=== PATIENT | female | born 1995 ===

== ENCOUNTER → 2024-05-23 | Outpatient (CLI) | payer OTHER | LOC: LAB 16:54 → LAB SHORT 16:54 | PROVIDERS: Advanced Practice Midwife | DX: Z01.419 Encounter for gynecological examination (general) (routine) without abnormal findings (principal) | CPT/HCPCS: G0123 ==

== ENCOUNTER → 2024-11-07 | Outpatient (CLI) | payer OTHER | END | disposition home or self-care (01) | LOC: LAB 17:24 → LAB SHORT 17:24 | DX: Z34.93 Encounter for supervision of normal pregnancy, unspecified, third trimester (principal); Z3A.00 Weeks of gestation of pregnancy not specified | CPT/HCPCS: 87081; 87147 ==

== ENCOUNTER 2024-12-01 23:38 | Inpatient (IN) | payer OTHER ==
[~2024-12-01] VITALS: Ht 160 cm; Wt 103.1 kg
[2024-12-01 23:56] VITALS: BP 163/109
[2024-12-02] VITALS (40 sets, daily range): BP systolic 113–203; BP diastolic 58–107
[2024-12-02] MEDS ORDERED: FentaNYL Citrate 50 MCG/ML 2 ML Injection IV PRN (00:20)
[2024-12-02] MEDS ORDERED: FentaNYL 2mcg/ml-Bup 0.1% Epd 250 ML EPI PRN (00:25)
[2024-12-02] MEDS ORDERED: Methylergonovine Maleate 0.2MG / ML 1ML Amp IM PRN ×2 (00:25→15:45)
[2024-12-02] MEDS ORDERED: Tranexamic Acid 100 ML IV PRN (00:25)
[2024-12-02] MEDS ORDERED: Penicillin G Potassium 5,000,000 UNITS in NS 250 ML IV ONE (00:25)
[2024-12-02] MEDS ORDERED: Ondansetron HCl 2 MG / ML 2ML Vial IV PRN (00:25)
[2024-12-02] MEDS ORDERED: OXYTOCIN/RINGER'S LACTATE 500 ML IV PRN (00:25)
[2024-12-02] MEDS ORDERED: Carboprost Tromethamine 250 MCG/ML 1ML Amp IM PRN ×2 (00:25→15:45)
[2024-12-02] MEDS ORDERED: ePHEDrine Sulfate 50 MG/ML 1ML Injection XX PRN (00:25)
[2024-12-02] MEDS ORDERED: Oxytocin 10 Unit / ML Vial IM PRN (00:25)
[2024-12-02 01:10] LABS: BASOPHILS ABSOLUTE AUTO 0.03 K/mm3 (0.00-0.23); BASOPHILS PERCENT AUTO 0 % (0-2); EOSINOPHILS ABSOLUTE AUTO 0.07 K/mm3 (0.00-0.68); EOSINOPHILS PERCENT AUTO 1 % (0-6); Hematocrit 36.6 % (33.0-51.0); Hemoglobin 12.3 g/dL (11.5-16.0); IMMATURE GRAN ABSOLUTE AUTO 0.04 K/mm3 (0.00-0.10); IMMATURE GRAN PERCENT AUTO 0 % (0-1); LYMPHOCYTES ABSOLUTE AUTO 2.48 K/mm3 (0.84-5.20); LYMPHOCYTES PERCENT AUTO 27 % (21-46); MONOCYTES ABSOLUTE AUTO 0.71 K/mm3 (0.16-1.47); MONOCYTES PERCENT AUTO 8 % (4-13); Mean Corpuscular HGB Conc 33.6 g/dL (31.5-36.5); Mean Corpuscular Volume 83 fL (80-100); NEUTROPHILS ABSOLUTE AUTO 5.89 K/mm3 (1.96-9.15); NEUTROPHILS PERCENT AUTO 64 % (41-73); NRBC ABSOLUTE 0.00 K/mm3 (0.00-0.02); NRBC Auto 0.0 /100 WBC (0.0-0.2); Platelet Count 201 K/mm3 (150-400); RDW Coefficient Variation 13.5 % (11.7-14.2); RDW Standard Deviation 40.1 fL (35.1-46.3)
[2024-12-02] MEDS ORDERED: Penicillin G Potassium 2,500,000 UNITS in Dextrose 5% 100 ML IV SCH (05:00)
[2024-12-02] MEDS ORDERED: DiphenhydrAMINE HCl 50 MG/ML 1ML Vial IV ONE (08:05)
[2024-12-02] MEDS ORDERED: DiphenhydrAMINE HCl 50 MG/ML 1ML Vial ONE (08:06)
[2024-12-02] MEDS ORDERED: OXYTOCIN/RINGER'S LACTATE 500 ML IV SCH ×2 (11:10→15:40)
[2024-12-02] MEDS ORDERED: Tranexamic Acid 100 ML IV ONE (15:08)
[2024-12-02] MEDS ORDERED: Oxytocin 10 Unit / ML Vial IM ONE (15:40)
[2024-12-02] MEDS ORDERED: Benzocaine Topical Anesthetic Spray 60GM TOP PRN (15:45)
[2024-12-02] MEDS ORDERED: Ketorolac Tromethamine 30mg Vial IV PRN (15:45)
[2024-12-02] MEDS ORDERED: Witch Hazel/Glycerin PADS TOP PRN (15:50)
[2024-12-02] MEDS ORDERED: FLU VACC TS2025-26(6MOS UP)/PF 45 MCG/0.5 ML SYRINGE IM SCH (15:50)
[2024-12-02] MEDS ORDERED: Rho(D) Immune Globulin 300 MCG / SYR IM ONE (15:50)
[2024-12-02] MEDS ORDERED: Labetalol HCL 5 MG/ML 4ML Injection (Single Dose) ONE (16:28)
[2024-12-02] MEDS ORDERED: Magnesium Sulf 2 GM/Water 50ML 50 ML IV SCH (16:50)
[2024-12-02] MEDS ORDERED: Labetalol HCL 5 MG/ML 4ML Injection (Single Dose) IV ONE (16:50)
[2024-12-02] MEDS ORDERED: Magnesium Sul 4 GM/Water100 ML 100 ML IV ONE (16:50)
[2024-12-02] MEDS ORDERED: Labetalol HCL 5 MG/ML 4ML Injection (Single Dose) IV PRN ×2 (16:50)
[2024-12-02 17:45] LABS: BASOPHILS ABSOLUTE AUTO 0.01 K/mm3 (0.00-0.23); BASOPHILS PERCENT AUTO 0 % (0-2); EOSINOPHILS ABSOLUTE AUTO 0.00 K/mm3 (0.00-0.68); EOSINOPHILS PERCENT AUTO 0 % (0-6); Hematocrit 31.6 % (33.0-51.0); Hemoglobin 10.5 g/dL (11.5-16.0); IMMATURE GRAN ABSOLUTE AUTO 0.09 K/mm3 (0.00-0.10); IMMATURE GRAN PERCENT AUTO 1 % (0-1); LYMPHOCYTES ABSOLUTE AUTO 1.66 K/mm3 (0.84-5.20); LYMPHOCYTES PERCENT AUTO 11 % (21-46); MONOCYTES ABSOLUTE AUTO 0.79 K/mm3 (0.16-1.47); MONOCYTES PERCENT AUTO 5 % (4-13); Mean Corpuscular HGB Conc 33.2 g/dL (31.5-36.5); Mean Corpuscular Volume 82 fL (80-100); NEUTROPHILS ABSOLUTE AUTO 12.02 K/mm3 (1.96-9.15); NEUTROPHILS PERCENT AUTO 83 % (41-73); NRBC ABSOLUTE 0.00 K/mm3 (0.00-0.02); NRBC Auto 0.0 /100 WBC (0.0-0.2); Platelet Count 172 K/mm3 (150-400); RDW Coefficient Variation 13.7 % (11.7-14.2); RDW Standard Deviation 40.4 fL (35.1-46.3)
[2024-12-02 18:13] LABS: Alanine Aminotransfer (ALT/SGP 26.0 U/L (12-78); Albumin, Blood 2.3 g/dL (3.4-5.0); Albumin/Globulin Ratio 0.6 (0.8-1.8); Anion Gap 13.0 mmol/L (3-11); Aspartate Aminotrans (AST/SGOT 32.0 U/L (12-37); Bilirubin, Total 0.2 mg/dL (0.1-1.0); Blood Urea Nitrogen 14.0 mg/dL (8-24); CO2, Blood 22.0 mmol/L (21-32); Calcium, Blood 8.2 mg/dL (8.5-10.1); Chloride, Blood 97.0 mmol/L (98-108); Creatinine, Blood 0.8 mg/dL (0.40-1.00); Globulin, Blood 3.8 g/dL (2.2-4.0); Glucose, Blood 96.0 mg/dL (70-99); Lactate Dehydrogenase (Ld),Bld 247.0 U/L (100-240); Potassium, Blood 3.6 mmol/L (3.5-5.5); Sodium, Blood 128.0 mmol/L (136-145); Total Protein, Blood 6.1 g/dL (6.4-8.2)
[2024-12-02 18:30] LABS: Fibrinogen 452.0 mg/dL (170-430); Prothrombin Time Results 9.8 Sec (9.7-11.5)
--- NOTE | 2024-12-02 20:04 | NUR ---
DR LIVINGSTON IS UPDATED WITH TRENDING BP'S. ORDER IS RECEIVED FOR PO LABETALOL 100MG BID IF BP IS >150/90 NOT RELATED TO PAIN.
[2024-12-02] MEDS ORDERED: Rho(D) Immune Globulin 300 MCG / SYR IV ONE (21:15)
[2024-12-03] VITALS (8 sets, daily range): BP systolic 117–155; BP diastolic 66–108
[2024-12-03 05:48] LABS: BASOPHILS ABSOLUTE AUTO 0.02 K/mm3 (0.00-0.23); BASOPHILS PERCENT AUTO 0 % (0-2); EOSINOPHILS ABSOLUTE AUTO 0.02 K/mm3 (0.00-0.68); EOSINOPHILS PERCENT AUTO 0 % (0-6); Hematocrit 32.2 % (33.0-51.0); Hemoglobin 10.6 g/dL (11.5-16.0); IMMATURE GRAN ABSOLUTE AUTO 0.06 K/mm3 (0.00-0.10); IMMATURE GRAN PERCENT AUTO 1 % (0-1); LYMPHOCYTES ABSOLUTE AUTO 2.08 K/mm3 (0.84-5.20); LYMPHOCYTES PERCENT AUTO 16 % (21-46); MONOCYTES ABSOLUTE AUTO 0.74 K/mm3 (0.16-1.47); MONOCYTES PERCENT AUTO 6 % (4-13); Mean Corpuscular HGB Conc 32.9 g/dL (31.5-36.5); Mean Corpuscular Volume 84 fL (80-100); NEUTROPHILS ABSOLUTE AUTO 10.04 K/mm3 (1.96-9.15); NEUTROPHILS PERCENT AUTO 77 % (41-73); NRBC ABSOLUTE 0.00 K/mm3 (0.00-0.02); NRBC Auto 0.0 /100 WBC (0.0-0.2); Platelet Count 161 K/mm3 (150-400); RDW Coefficient Variation 13.9 % (11.7-14.2); RDW Standard Deviation 42.2 fL (35.1-46.3)
--- NOTE | 2024-12-03 08:40 | NUR ---
BP @0814 WAS NOT ACCURATE D/T PT GETTING UP AND WALKING AROUND BEFORE HAND. REPEAT BP AFTER RESTING AND BREAST FEEDING 135/74.
[2024-12-03] MEDS ORDERED: Prenatal Vit/FE Fumarate/FA 1 Tab PO SCH (09:00)
--- NOTE | 2024-12-03 09:08 | NUR ---
DR LIVINGSTON @BEDSIDE, SHE STATED TO TURN OFF MAGNESIUM D/T PT BP'S BEING WNL. DR LIVINGSTON STATES SHE IS GOING TO PUT IN THE ORDER FOR PO NIPHEDIPINE. PLAN FOR PT TO GET REST TODAY AND RECOVER.
[2024-12-04 00:02] VITALS: BP 114/63
[2024-12-04 04:30] VITALS: BP 146/90
[2024-12-04 07:35] VITALS: BP 167/104
[2024-12-04 08:06] VITALS: BP 146/80
--- NOTE | 2024-12-04 12:12 | NUR ---
SPOKE WITH DR MEEK REGARDING MMR VACCINE, SHE STATES PATIENT WILL RECEIVE MMR IN THE OFFICE.
--- NOTE | 2024-12-04 14:24 | NUR ---
pt discharged home with
== END 2024-12-04 14:15 | disposition home or self-care (01) | DRG 807 ==
LOC: OBS 23:38 → BC 23:38 → OBS 12-02 00:21 → BC 12-02 00:23
PROVIDERS: Family Medicine; ADMIT Advanced Practice Midwife
PROC: 10E0XZZ Delivery of Products of Conception, External Approach (ICD-10-PCS; principal; 2024-12-02)
PROC: 0HQ9XZZ Repair Perineum Skin, External Approach (ICD-10-PCS; 2024-12-02)
PROC: 3E0R3BZ Introduction of Anesthetic Agent into Spinal Canal, Percutaneous Approach (ICD-10-PCS; 2024-12-02)
PROC: 00HU33Z Insertion of Infusion Device into Spinal Canal, Percutaneous Approach (ICD-10-PCS; 2024-12-02)
PROC: 3E0334Z Introduction of Serum, Toxoid and Vaccine into Peripheral Vein, Percutaneous Approach (ICD-10-PCS; 2024-12-02)
PROC: 3E03329 Introduction of Other Anti-infective into Peripheral Vein, Percutaneous Approach (ICD-10-PCS; 2024-12-02)
PROC: 3E02340 Introduction of Influenza Vaccine into Muscle, Percutaneous Approach (ICD-10-PCS; 2024-12-02)
DX: O99.214 Obesity complicating childbirth (principal); Z37.0 Single live birth; Z3A.40 40 weeks gestation of pregnancy; O48.0 Post-term pregnancy; O99.824 Streptococcus B carrier state complicating childbirth; O76 Abnormality in fetal heart rate and rhythm complicating labor and delivery; O14.95 Unspecified pre-eclampsia, complicating the puerperium; O26.893 Other specified pregnancy related conditions, third trimester; Z67.41 Type O blood, Rh negative; Z98.890 Other specified postprocedural states
CPT/HCPCS: 36415; 51702; 80053; 83615; 84112; 85025; 85384; 85460; 85610; 85730; 86850; 86900; 86901; 99214; A9270; J1200; J1885; J2540; J2590; J2791; J3475; J7050; J7120

== ENCOUNTER 2024-12-05 09:33 | Inpatient (IN) | payer OTHER ==
[2024-12-05] VITALS (21 sets, daily range): BP systolic 106–174; BP diastolic 57–96
--- NOTE | 2024-12-05 10:18 | NUR ---
pt presents to [facility] from [facility], for increasing pedal edema. B/P 162/79, in supine position. +2 pedal edema up to calves. +1 generalized edema, +2 DTRs, no clonus.
--- NOTE | 2024-12-05 10:30 | NUR ---
0945- pt took own 30mg Nifedipine and 800mg Ibuprophen
--- NOTE | 2024-12-05 11:01 | NUR ---
Pt presents to [facility] reporting she had gone to urgent care this am. Woke up and felt her BLE were significantly more swollen than they had been. Had elevated BP and proteinuria at urgent care and they recommended she come here for further evaluation. Upon arrival, graphic design manager, Diana Traore RN, learned pt had not yet taken her scheduled Nifedipine XL that had been prescribed upon discharge yesterday. When this RN entered room to take repeat BP, pt had just finished . While talking with pt she expressed that she has had very little sleep since being admitted. Reports she has anxiety that is not allowing her to sleep as she feels her nb is going to choke and if she isn't watching him. Inquired if pt would be open to possibly trying an anxiety medication if recommended by provider and pt stated she would be open to this. Repeat BP remain elevated, 150s/90s. Will notify provider for further orders.
[2024-12-05 11:52] LABS: BASOPHILS ABSOLUTE AUTO 0.02 K/mm3 (0.00-0.23); BASOPHILS PERCENT AUTO 0 % (0-2); EOSINOPHILS ABSOLUTE AUTO 0.10 K/mm3 (0.00-0.68); EOSINOPHILS PERCENT AUTO 1 % (0-6); Hematocrit 30.6 % (33.0-51.0); Hemoglobin 10.1 g/dL (11.5-16.0); IMMATURE GRAN ABSOLUTE AUTO 0.05 K/mm3 (0.00-0.10); IMMATURE GRAN PERCENT AUTO 1 % (0-1); LYMPHOCYTES ABSOLUTE AUTO 2.18 K/mm3 (0.84-5.20); LYMPHOCYTES PERCENT AUTO 22 % (21-46); MONOCYTES ABSOLUTE AUTO 0.62 K/mm3 (0.16-1.47); MONOCYTES PERCENT AUTO 6 % (4-13); Mean Corpuscular HGB Conc 33.0 g/dL (31.5-36.5); Mean Corpuscular Volume 83 fL (80-100); NEUTROPHILS ABSOLUTE AUTO 7.12 K/mm3 (1.96-9.15); NEUTROPHILS PERCENT AUTO 71 % (41-73); NRBC ABSOLUTE 0.00 K/mm3 (0.00-0.02); NRBC Auto 0.0 /100 WBC (0.0-0.2); Platelet Count 194 K/mm3 (150-400); RDW Coefficient Variation 14.0 % (11.7-14.2); RDW Standard Deviation 42.5 fL (35.1-46.3)
[2024-12-05 12:10] LABS: Alanine Aminotransfer (ALT/SGP 119.0 U/L (12-78); Albumin, Blood 2.5 g/dL (3.4-5.0); Albumin/Globulin Ratio 0.7 (0.8-1.8); Anion Gap 7.0 mmol/L (3-11); Aspartate Aminotrans (AST/SGOT 130.0 U/L (12-37); Bilirubin, Total 0.2 mg/dL (0.1-1.0); Blood Urea Nitrogen 14.0 mg/dL (8-24); CO2, Blood 28.0 mmol/L (21-32); Calcium, Blood 8.4 mg/dL (8.5-10.1); Chloride, Blood 107.0 mmol/L (98-108); Creatinine, Blood 0.7 mg/dL (0.40-1.00); Globulin, Blood 3.8 g/dL (2.2-4.0); Glucose, Blood 77.0 mg/dL (70-99); Potassium, Blood 4.2 mmol/L (3.5-5.5); Sodium, Blood 138.0 mmol/L (136-145); Total Protein, Blood 6.3 g/dL (6.4-8.2)
[2024-12-05] MEDS ORDERED: Magnesium Sulf 2 GM/Water 50ML 50 ML IV ONE (15:00)
[2024-12-05] MEDS ORDERED: Magnesium Sul 4 GM/Water100 ML 100 ML IV ONE (15:00)
[2024-12-05] MEDS ORDERED: Polyethylene Glycol 3350 17 gm PO SCH (18:55)
[2024-12-06] VITALS (10 sets, daily range): BP systolic 126–161; BP diastolic 76–97
[2024-12-06] MEDS ORDERED: Benzocaine Topical Anesthetic Spray 60GM TOP ONE (01:35)
[2024-12-06] MEDS ORDERED: Witch Hazel/Glycerin PADS TOP PRN (01:35)
--- NOTE | 2024-12-06 06:29 | NUR ---
AT 0500 THE PT HANDED ME HER PHONE, SHE HAD WRITTEN A NOTE TO ME ON IT. IT STATED "CANDI NEEDS A BREAK AND TO GET SOME SLEEP. FOR THE SAFETY OF THE BABY, CANDI NEEDS SOME SLEEP.... HE IS GETTING VERY FRUSTERATED WITH HIM. HE WAS CUSSING AT THE BABY SAYING "YOU LITTLE FUCKER" AND TELLING HIM "NOW TAKE YOUR BOTTLE AND SHUT THE FUCK UP SO I CAN SLEEP" FRUSTRATION TO THAT DEGREE CAN LEAD TO DANGEROUS BEHAVIORS LIKE SHAKING THE BABY. I DON'T THINK CANDI WILL BUT HE IS STARTING TO BREAK. I CAN SEE AND HEAR IT. WHAT CAN WE DO?" THE PT STATES THAT SHE FEELS SAFE IN HER. THE CHARGE OMA WAS NOTIFIED. THE STAFF HAS NOT WITNESSED THIS BEHAVIOR FROM CANDI.
--- NOTE | 2024-12-06 06:45 | NUR ---
PT HAS BEEN TEARFUL THOUGHOUT THE NIGHT, SHE HAS SLEPT A SMALL AMOUNT. SHE COUNTUES TO TALK ABOUT HOW SHE IS NOT SURE HOW SHE IS GOING TO TAKE CARE OF THE BABY. SHE STATES THAT SHE CANT SLEEP BECAUSE SHE IS CONSTANTLY WATCHING HIM BECAUSE SHE THINKS SOMETHING BAD IS GOING TO HAPPEN TO HIM. SHE DOES NOT FEEL LIKE SHE IS GOING TO HURT THE BABY HERSELF. SHE FEELS LIKE NO ONE ELSE WILL KEEP HIM SAVE OR KNOW HOW TO TAKE CARE OF HIM. SHE HAS NO FAMILY OR FRIENDS THAT LIVE HERE.
--- NOTE | 2024-12-06 10:50 | NUR ---
Spoke with pt and partner, Terrence, further about him going home with nb for a couple of cycles of feeding so that pt can attempt to get a couple uninterrupted hours of sleep. Terrence, FOB, verbalized understanding of how much and how often to feed nb and pt verbalizes she agrees with and approves of him taking nb home independently. She feels she may be able to sleep and understands she has PRN anxiety medication available if unable to get sleep. Lights turned down and FOB headed home for now.
--- NOTE | 2024-12-06 12:14 | NUR ---
Dr. Calero here for psych consult. Visited with pt and recommended to this RN recommend to OB to give pt 1mg ativan or maybe trazadone, to help pt get good sleep.
--- NOTE | 2024-12-06 13:40 | NUR ---
BP elevated after visit from Paramjit Hughes CNM and DANET[employer] student. Pt sitting at eob discussing earlier visit from [facility] psychiatrist for consult. Per pt report he "had me really freaked out". When this RN spoke with MD after that consultation he felt as though [employer] needed to be notifed of earlier communication from PT to Noc RN and he reported he mentioned this to pt, that perhaps CPS should be called if pt feels FOB is a danger to NB. While Paramjit Hughes in room pt reports she does not feel that Terrence, FOB, would harm nb and is still just very concerned about her and Terrence's level of exhaustion and ability to safely care for nb as a result. Paramjit Hughes and this RN reinforced that Terrence has reported to each of us that he is in fact able to get some rest while NB is sleeping. Pt verbalized understanding and states she just spoke with Terrence at home and that NB is sleeping. Reports she has been able to sleep since Terrence and nb went home and plans to continue to get more sleep until they return later this afternoon.
--- NOTE | 2024-12-06 15:00 | NUR ---
Spoke with ALICE Townsend home visiting RN, regarding stat CORE referral. Reported she will reach out to pt via text tomorrow to try to set up a home visit ambrocio. Pt notified of expected text communication tomorrow am. Seemed excited about possiblity of more resources being available once she returns home.
--- NOTE | 2024-12-06 17:05 | NUR ---
Pt saline locked after Magnesium d/c'd after 24hour infusion. Pt up to br, will call when back to bed for vs.
--- NOTE | 2024-12-07 04:27 | NUR ---
Late entry: At 0130, pt stated that she was starting to feel anxious. Visteril given per pts request and order. She states that she has only been able to sleep an hour because she can't stop thinking. Fresh water given. At 0230, pt resting in bed with sleeping mask on, breathing even and unlabored. No s/s of distress. CLWR. Curently pt is still resting in bed, breathing even and unlabored. she has not utilizied her call light for any needs. CLWR.
[2024-12-07 06:17] VITALS: BP 148/73
--- NOTE | 2024-12-07 06:27 | NUR ---
Pt up to [employer]. Pt states that she slept well for about 3 hours and is going to go back to sleep. She states that she is feeling a little better after sleeping. Denies other needs at this time.
--- NOTE | 2024-12-07 12:14 | NUR ---
SW in room, pt working on intake paperwork for counseling appoinment that has been reschedule to tomorrow.
[2024-12-07 12:58] VITALS: BP 163/82
[2024-12-07 13:13] VITALS: BP 138/88
[2024-12-07] MEDS ORDERED: PROP10 PO (14:56)
[2024-12-07] MEDS ORDERED: SERT25 PO (14:56)
[2024-12-07] MEDS ORDERED: NIFE30ER PO (14:57)
[2024-12-07] MEDS ORDERED: MIRALAX17 GM PO (14:59)
[2024-12-07] MEDS ORDERED: HYDPAM50 PO (14:59)
[2024-12-07] MEDS ORDERED: IBUP800 PO (15:00)
--- NOTE | 2024-12-07 15:00 | NUR ---
Printed discharge instructions reviewed. Medications and follow up appointments closely and thoroughly reviewed w/pt and SO. Pt verbalized understanding of all medicaitons and appointments. Pt verbalized that she will call [facility] or [facility] caustic purification operator provider if starting to feel overwhelmed or anxious as she did prior to arrival. Pt reports she and SO have plan to alternate care of nb so that both of them can rest and sleep. Pt states she feels she is in a much better mental state than when she arrived and feels safe going home. Pt d/c'd home ambulatory to care of SO.
== END 2024-12-07 15:36 | disposition home or self-care (01) | DRG 776 ==
LOC: BC 09:33 → OBS 09:33 → BC 10:18 → OBS 13:50 → BC 13:51
PROVIDERS: ADMIT Advanced Practice Midwife
DX: O14.95 Unspecified pre-eclampsia, complicating the puerperium (principal); O99.345 Other mental disorders complicating the puerperium; F41.0 Panic disorder [episodic paroxysmal anxiety]; F51.05 Insomnia due to other mental disorder
CPT/HCPCS: 36415; 80053; 85025; A9270; J3475; J7120; Q0177; T2101